=== PATIENT | female | born 2000 | race American Indian/Alaskan Native ===

== ENCOUNTER 2019-02-15 13:45 | Emergency (ER) | payer OTHER ==
[2019-02-15 14:52] VITALS: BP 113/69
--- NOTE | 2019-02-15 14:54 | Emergency Department Report ---
Blank Doc - Documentation Documentation: reports abscess to back of left leg and now drainage. Unknown cause. Denies chiils. Positive pain to site Noted open wound with erythema, swelling and drainage to posterior distal left left VSS Lowgrade temp 99.2
[2019-02-15] MEDS ORDERED: TRIPLE ANTIBIOTIC TP ONE (15:12)
[2019-02-15] MEDS ORDERED: IBUPROFEN PO ONE (15:12)
[2019-02-15] MEDS ORDERED: KEFLEX PO ONE (15:12)
--- NOTE | 2019-02-15 15:15 | Emergency Department Report ---
Abscess Boil HPI - HPI Chief Complaint: Skin/Abscess/Foreign Body Stated Complaint: ABCESS Time Seen by Provider: 02/15/19 14:51 Duration: 3 Days Location: Lower Extremity History: Yes Pain, Yes Purulent Drainage, No Fever, No Numbness, No Foreign Body, No Previous History, No Insect Bite HPI: Patient is a 18-year-old female who comes to the ER with an abscess on her left lower extremity. She states that she is not sure if it was a bite or a boil. The wound is already open and draining. Patient denies having any fever at home. She denies chills. She denies any trauma. She is up-to-date on her tetanus. Home Medications: Previous Rx's Medication Instructions Recorded Last Taken Type cephALEXin [Keflex] 500 mg PO Q12HR #20 cap 02/15/19 Unknown Rx Allergies/Adverse Reactions: Allergies Allergy/AdvReac Type Severity Reaction Status Date / Time No Known Allergies Allergy Unverified 02/15/19 13:47 ED Review of Systems ROS: Stated complaint: ABCESS Other details as noted in HPI Comment: All other systems reviewed and negative ED Past Medical Hx - Past Medical History Previous Medical History?: No - Surgical History Past Surgical History?: No - Family History Family history: no significant - Social History Smoking Status: Never Smoker Substance Use Type: None - Medications Home Medications: Home Medications Medication Instructions Recorded Confirmed Last Taken Type cephALEXin [Keflex] 500 mg PO Q12HR #20 cap 02/15/19 Unknown Rx ED Abscess Boil Physical Exam - Exam General: Vital signs noted. No distress. Alert and acting appropriately. Size: 3 cm Exam: Yes Tenderness, Yes Normal Neurologic Exam, Yes Normal Circulation, No Fluctuance, No Surrounding Cellulites/Erythema, No Lymphangitis, No Crepitation, No Heart Murmur ED Course Vital Signs 02/15/19 14:51 Temperature 99.9 F H Pulse Rate 94 H Respiratory 18 Rate Blood Pressure 113/69 O2 Sat by Pulse 99 Oximetry Critical care attestation.: If time is entered above; I have spent that time in minutes in the direct care of this critically ill patient, excluding procedure time. ED Medical Decision Making - Medical Decision Making ABSCESS OPEN AND DRAINING Pt ambulatory and non toxic denies fever or chills low grade fever in ER noted medicated with keflex and motrin WILL PLACE ON ANTIBIOTICS AND HAVE HER FOLLOW UP WITH PCP NEXT WEEK Dc home with mother. Vital Signs 02/15/19 14:51 Temperature 99.9 F H Pulse Rate 94 H Respiratory 18 Rate Blood Pressure 113/69 O2 Sat by Pulse 99 Oximetry - Differential Diagnosis abscess leg ED Disposition Clinical Impression: Abscess Disposition: DC-01 TO HOME OR SELFCARE Is pt being admited?: No Does the pt Need Aspirin: No Condition: Stable Instructions: Abscess (ED) Additional Instructions: CLEAN WOUND WITH SOAP AND WATER KEEP IT COVERED WITH GUAZE SOAK WOUND IN EPSOM SALTS AND WARM WATER SEVERAL TIMES PER DAY THIS WILL HELP IT TO DRAIN MORE MEDS ORDERED TODAY FOLLOW UP WITH PCP NEXT WEEK TO BE SURE IT IS GETTING BETTER REFERRAL BELOW TYLENOL OR MOTRIN FOR PAIN OR FEVER Prescriptions: cephALEXin [Keflex] 500 mg PO Q12HR #20 cap Referrals: DOMINGO JEFFERY MD [Staff Physician] - 3-5 Days Time of Disposition: 15:13
== END 2019-02-15 15:48 | disposition home or self-care (01) ==
LOC: ED 13:45
DX: L02.416 Cutaneous abscess of left lower limb (principal)
CPT/HCPCS: 99282; A6250